=== PATIENT | female | born 1985 | race Caucasian/White ===

== ENCOUNTER 2017-03-13 21:11 | Emergency (ER) | payer MEDICAID ==
[~2017-03-13] VITALS: Ht 147.3 cm; Wt 88.5 kg
--- NOTE | 2017-03-13 22:08 | NUR ---
PT RECEIVED FROM HOME BIB SELF C/O LEFT ARM PAIN 08/06 NONRADIATING FEELING "PRESSURE" LIKE. X2 WEEKS AGO HAD SENSATION IN LOWER LEGS. NO SOB NOTED WITH ADEQUATE CHEST RISE AND FALL. A/OX4 VSS NAD. WILL CONTINUE TO MONITOR FOR ANY CHANGES
--- NOTE | 2017-03-13 22:10 | NUR ---
EKG AT BEDSIDE
--- NOTE | 2017-03-13 23:48 | NUR ---
ER MD DÍAZ AT BEDSIDE FOR EVAL
[2017-03-13] MEDS ORDERED: ACETAMINOPHEN ES 500 MG TABLET ONE (23:55)
--- NOTE | 2017-03-13 23:59 | NUR ---
LAB AT BEDSIDE FOR BLOOD DRAW
[2017-03-14] MEDS ORDERED: ACETAMINOPHEN ES 500 MG TABLET PO ONE
--- NOTE | 2017-03-14 00:07 | NUR ---
MECHANICAL EXPERT AT BEDSIDE
--- NOTE | 2017-03-14 00:08 | NUR ---
PT TO SIGN REFUSAL OF TEST FOR OKAY TO XRAY
[2017-03-14 00:14] LABS: BASOPHILS # (AUTO) 0.1 /CMM (0.0-0.2); EOSINOPHILS # (AUTO) 0.2 /CMM (0.0-0.7); EOSINOPHILS % (AUTO) 1.8 % (0.0-6.0); HEMATOCRIT 37 % (33-45); HEMOGLOBIN 12.5 g/dL (11.5-14.8); LYMPHOCYTES # (AUTO) 2.5 /CMM (0.8-4.8); LYMPHOCYTES % (AUTO) 25.9 % (20.0-44.0); MEAN CORPUSCULAR HEMOGLOBIN 30 PG (26.0-33.0); MEAN CORPUSCULAR HGB CONC 34 g/dl (31.0-36.0); MEAN CORPUSCULAR VOLUME 87 fL (82-100); MONOCYTES # (AUTO) 0.8 /CMM (0.1-1.30); MONOCYTES % (AUTO) 8.8 % (2.0-12.0); NEUTROPHILS # (AUTO) 5.9 /CMM (1.8-8.9); NEUTROPHILS % (AUTO) 62.5 % (43.0-81.0); PLATELET COUNT (AUTO) 311 /CMM (150-450); RDW COEFFICIENT OF VARIATION 13.6 (11.5-15.0); WHITE BLOOD COUNT (AUTO) 9.5 K/uL (4.3-11.0)
[2017-03-14 00:33] LABS: TROPONIN I < 0.017 ng/mL (0.00-0.056)
[2017-03-14 00:34] LABS: CALCIUM, SERUM 8.5 mg/dL (8.5-10.1); CREATININE 0.6 mg/dL (0.6-1.3); GLUCOSE 95 mg/dL (74-106); UREA NITROGEN, BLOOD 15 mg/dL (7-18)
[2017-03-14 00:39] LABS: CARBON DIOXIDE 27 mmol/L (21-32); CHLORIDE 104 mmol/L (98-107); POTASSIUM 3.7 mmol/L (3.5-5.1); SODIUM SERUM 139 mmol/L (136-145)
[2017-03-14 01:02] LABS: ALANINE AMINOTRANSFERASE 23 U/L (12-78); ALBUMIN 3.5 g/dL (3.4-5.0); ALKALINE PHOSPHATASE 72 U/L (46-116); ASPARTATE AMINOTRANSFERASE 12 U/L (15-37); B-TYPE NATRIURETIC PEPTIDE 54 PG/ML (0-125); BILIRUBIN,TOTAL 0.2 mg/dL (0.2-1.0); TOTAL PROTEIN, SERUM 7.8 g/dL (6.4-8.2)
[2017-03-14 01:26] VITALS: BP 134/76
== END 2017-03-14 01:27 | disposition home or self-care (01) ==
LOC: ER 21:16
DX: M79.602 Pain in left arm (principal)
CPT/HCPCS: 36415; 71045; 73060; 80048; 80076; 83880; 84484; 85025; 93005 ×2; 99285; A4606; Z7610

== ENCOUNTER 2017-04-06 20:14 | Emergency (ER) | payer MEDICAID ==
[~2017-04-06] VITALS: Ht 152.4 cm; Wt 83.9 kg
--- NOTE | 2017-04-06 20:25 | NUR ---
TO BED 5 A 31 YO FEMALE PATIENT BB SELF; LEFT ABD/ FLANK PAIN X 3 DAYS, CRAMPING LIKE. PATIENT IS AAOX4, NAD NOTED. VSS. SKIN WARM AND DRY. GOWNED. COMFORT MEASURES RENDERED.
--- NOTE | 2017-04-06 20:49 | NUR ---
DR GILLESPIE AT BEDSIDE TO EVALUATE PATIENT.
[2017-04-06] MEDS ORDERED: ONDANSETRON HCL/PF 4 MG/2 ML VIAL ONE (20:55)
[2017-04-06] MEDS ORDERED: MORPHINE SULFATE INJ 4 MG/ML DISP.SYRIN ONE (20:56)
[2017-04-06] MEDS ORDERED: ONDANSETRON HCL/PF 4 MG/2 ML VIAL IVP ONE (21:00)
[2017-04-06] MEDS ORDERED: MORPHINE SULFATE INJ 2 MG/ML DISP.SYRIN IV ONE (21:00)
--- NOTE | 2017-04-06 21:00 | NUR ---
STARTED A SALINE LOCK ON THE LAC G18, BLOOD DRAWN AND SENT TO LAB.
[2017-04-06 21:05] LABS: BASOPHILS # (AUTO) 0.1 /CMM (0.0-0.2); BASOPHILS % (AUTO) 0.7 % (0.0-2.0); EOSINOPHILS # (AUTO) 0.1 /CMM (0.0-0.7); EOSINOPHILS % (AUTO) 0.9 % (0.0-6.0); HEMATOCRIT 40 % (33-45); HEMOGLOBIN 13.6 g/dL (11.5-14.8); LYMPHOCYTES # (AUTO) 2.7 /CMM (0.8-4.8); LYMPHOCYTES % (AUTO) 22.5 % (20.0-44.0); MEAN CORPUSCULAR HEMOGLOBIN 29 PG (26.0-33.0); MEAN CORPUSCULAR HGB CONC 34 g/dl (31.0-36.0); MEAN CORPUSCULAR VOLUME 86 fL (82-100); MONOCYTES # (AUTO) 0.8 /CMM (0.1-1.30); MONOCYTES % (AUTO) 6.3 % (2.0-12.0); NEUTROPHILS # (AUTO) 8.3 /CMM (1.8-8.9); NEUTROPHILS % (AUTO) 69.6 % (43.0-81.0); PLATELET COUNT (AUTO) 338 /CMM (150-450); RDW COEFFICIENT OF VARIATION 12.7 (11.5-15.0); RED BLOOD CELL COUNT(AUTO) 4.65 MIL/uL (4.0-5.2)
--- NOTE | 2017-04-06 21:05 | NUR ---
MEDICATED PATIETN ORDERED BY DR GILLESPIE.
[2017-04-06 21:19] LABS: CALCIUM, SERUM 9.4 mg/dL (8.5-10.1); CREATININE 0.6 mg/dL (0.6-1.3); POTASSIUM 3.9 mmol/L (3.5-5.1)
[2017-04-06 21:27] LABS: APPEARANCE,URINE Clear (CLEAR); BILIRUBIN,URINE Negative (NEGATIVE); BLOOD, URINE Negative Ery/uL (NEGATIVE); COLOR,URINE Yellow (YELLOW); KETONES,URINE Negative (NEGATIVE); LEUKOCYTE ESTERASE ,URINE Negative (NEGATIVE); NITRITE, URINE Negative (NEGATIVE); PROTEIN,URINE Negative (NEGATIVE); UGLUCOSE Negative (NEGATIVE); UROBILINOGEN,URINE 0.2 EU/dL (0.2)
[2017-04-06 21:30] LABS: ALBUMIN 3.7 g/dL (3.4-5.0); BILIRUBIN,DIRECT 0.1 mg/dL (0.0-0.2); BILIRUBIN,TOTAL 0.3 mg/dL (0.2-1.0); TOTAL PROTEIN, SERUM 8.4 g/dL (6.4-8.2)
--- NOTE | 2017-04-06 21:38 | NUR ---
PATIENT AT CT THIS TIME.
--- NOTE | 2017-04-06 22:31 | NUR ---
IV removed. Catheter intact and site benign. Pressure and 4x4 applied to site. No bleeding noted. Patient discharged to home in stable condition. Written and verbal after care instructions given. Patient verbalizes understanding of instruction. Patient is ambulatory with steady gait, accompanied by mother. Instructed patient not to drive. vss. nad noted. No further complaints.
[2017-04-06 22:32] VITALS: BP 133/82
== END 2017-04-06 22:32 | disposition home or self-care (01) ==
LOC: ER 20:20
DX: R10.32 Left lower quadrant pain (principal); K92.1 Melena
CPT/HCPCS: 36415; 74176; 80048; 80076; 81001; 83690; 84703; 85025; 96374; 96375; 99285; A4606; J2270 ×2; J2405 ×2; Z7610; 81000-TC

== ENCOUNTER 2021-06-15 20:24 | Emergency (ER) | payer SELFPAY ==
[~2021-06-15] VITALS: Ht 152.4 cm; Wt 97.5 kg
--- NOTE | 2021-06-15 22:28 | NUR ---
TO ER BED 3. BIBS C/O PAINFUL URINATION AND ABDOMINAL PAIN RADIATING TO L LOWER BACK. 10/06 ON P/S , DESCRIBED "SHARP" PAIN . PT TOOK OTC MEDS WITH LITTLE TO NO RELIEF. CHANGED INTO GOWN. CONNECTED TO MONITOR. AWAITING MD [place]
[2021-06-15] MEDS ORDERED: ONDANSETRON 4 MG TAB.RAPDIS ONE (22:39)
[2021-06-15] MEDS ORDERED: HYDROCODONE/APAP 10/325MG TABLET ONE (22:39)
[2021-06-15] MEDS ORDERED: HYDROCODONE/APAP 10/325MG TABLET PO ONE (23:00)
[2021-06-15] MEDS ORDERED: ONDANSETRON 4 MG TAB.RAPDIS SL ONE (23:00)
[2021-06-15 23:16] LABS: COLOR,URINE ORANGE (YELLOW)
[2021-06-15 23:17] LABS: PROTEIN,URINE NEGATIVE (NEGATIVE); UGLUCOSE NEGATIVE (NEGATIVE)
[2021-06-15 23:18] LABS: BILIRUBIN,URINE 1+ (NEGATIVE); LEUKOCYTE ESTERASE ,URINE NEGATIVE (NEGATIVE); NITRITE, URINE NEGATIVE (NEGATIVE)
[2021-06-15 23:20] LABS: BACTERIA,URINE Many /HPF (None Seen); MUCUS,URINE Few /LPF (None Seen); RBC,URINE 0-2 /HPF (0-2); SQUAMOUS EPITHELIAL CELL,UR Moderate /HPF (None Seen)
[2021-06-16] MEDS ORDERED: NITROFURANTOIN/MONOHYDRATE MACROCRYSTALS 100 MG CAPSULE PO ONE (00:30)
[2021-06-16] MEDS ORDERED: NITROFURANTOIN/MONOHYDRATE MACROCRYSTALS 100 MG CAPSULE ONE (00:44)
[2021-06-16 00:58] LABS: BASOPHILS # (AUTO) 0.1 K/uL (0.0-0.2); BASOPHILS % (AUTO) 0.9 % (0.0-2.0); EOSINOPHILS % (AUTO) 2.9 % (0.0-6.0); HEMATOCRIT 39 % (33-45); HEMOGLOBIN 12.8 g/dL (11.5-14.8); LYMPHOCYTES # (AUTO) 2.4 K/uL (0.8-4.8); LYMPHOCYTES % (AUTO) 25.3 % (20.0-44.0); MEAN CORPUSCULAR HGB CONC 33 g/dl (31.0-36.0); MEAN CORPUSCULAR VOLUME 88 fL (82-100); MONOCYTES # (AUTO) 0.9 K/uL (0.1-1.30); MONOCYTES % (AUTO) 9.6 % (2.0-12.0); NEUTROPHILS # (AUTO) 5.9 K/uL (1.8-8.9); NEUTROPHILS % (AUTO) 61.3 % (43.0-81.0); PLATELET COUNT (AUTO) 326 K/uL (150-450); RED BLOOD CELL COUNT(AUTO) 4.39 MIL/uL (4.0-5.2); WHITE BLOOD COUNT (AUTO) 9.6 K/uL (4.3-11.0)
[2021-06-16 01:06] LABS: CALCIUM, SERUM 9.1 mg/dL (8.5-10.1); CREATININE 0.7 mg/dL (0.6-1.3); POTASSIUM 4.1 mmol/L (3.5-5.1)
[2021-06-16 01:23] LABS: ALBUMIN 3.3 g/dL (3.4-5.0); BILIRUBIN,TOTAL 0.2 mg/dL (0.2-1.0); TOTAL PROTEIN, SERUM 7.8 g/dL (6.4-8.2)
[2021-06-16] MEDS ORDERED: CEPH500T PO (05:53)
[2021-06-16] MEDS ORDERED: NITR-84 PO (05:53)
[2021-06-16] MEDS ORDERED: HYDR-4209 PO (05:53)
[2021-06-16] MEDS ORDERED: ONDA4TAB5 PO (05:53)
[2021-06-16] MEDS ORDERED: CEPHALEXIN MONOHYDRATE 500 MG CAPSULE PO ONE ×2 (06:00→06:02)
--- NOTE | 2021-06-16 06:10 | NUR ---
Patient discharged to home in stable condition. Written and verbal after care instructions given. Patient verbalizes understanding of instruction. Pt ambulatory with a steady gait
[2021-06-16 06:17] VITALS: BP 135/80
== END 2021-06-16 06:10 | disposition home or self-care (01) ==
LOC: ER 20:27
DX: N30.90 Cystitis, unspecified without hematuria (principal)
CPT/HCPCS: 36415; 74176; 80053; 81001; 83690; 84703; 85025; 87077; 87086; 87186; 99284; Q0162

== ENCOUNTER 2022-05-29 05:09 | Emergency (ER) | payer SELFPAY ==
[~2022-05-29] VITALS: Ht 152.4 cm; Wt 99.8 kg
[~2022-05-29 05:09] MED LIST: CEPH500T PO; HYDR-4209 PO; NITR-84 PO; ONDA4TAB5 PO
--- NOTE | 2022-05-29 05:18 | NUR ---
[id number] FROM HOME C/O FEELING DIZZY AFTER WALKING TO RESTROOM THIS MORNING. PT IS A/O X 4, RR EVEN AND UNLABORED, NO SOB NOTED, VSS, NAD. PT TO ER BED 09 AND CONNECTED TO CARDIAC AND POX MONITORS.
[2022-05-29 05:56] LABS: BASOPHILS # (AUTO) 0.1 K/uL (0.0-0.2); EOSINOPHILS % (AUTO) 2.6 % (0.0-6.0); HEMATOCRIT 39 % (33-45); HEMOGLOBIN 12.6 g/dL (11.5-14.8); LYMPHOCYTES # (AUTO) 1.8 K/uL (0.8-4.8); LYMPHOCYTES % (AUTO) 22.5 % (20.0-44.0); MEAN CORPUSCULAR HGB CONC 32 g/dl (31.0-36.0); MEAN CORPUSCULAR VOLUME 88 fL (82-100); MONOCYTES # (AUTO) 0.8 K/uL (0.1-1.30); MONOCYTES % (AUTO) 9.5 % (2.0-12.0); NEUTROPHILS # (AUTO) 5.2 K/uL (1.8-8.9); NEUTROPHILS % (AUTO) 64.4 % (43.0-81.0); PLATELET COUNT (AUTO) 381 K/uL (150-450); RED BLOOD CELL COUNT(AUTO) 4.42 MIL/uL (4.0-5.2)
--- NOTE | 2022-05-29 06:10 | NUR ---
URINE COLLECTED SENT TO LAB
[2022-05-29 06:19] LABS: CALCIUM, SERUM 8.4 mg/dL (8.5-10.1); CREATININE 0.7 mg/dL (0.6-1.3); POTASSIUM 3.7 mmol/L (3.5-5.1)
[2022-05-29] MEDS ORDERED: diphenhydrAMINE HCL 50 MG/ML VIAL IV ONE (07:00)
[2022-05-29] MEDS ORDERED: ONDANSETRON HCL/PF 4 MG/2 ML VIAL IVP ONE (07:00)
[2022-05-29] MEDS ORDERED: IV NS 0.9% 500 ML BAG IV ONE (07:00)
[2022-05-29 07:12] LABS: BILIRUBIN,URINE NEGATIVE (NEGATIVE); COLOR,URINE YELLOW (YELLOW); LEUKOCYTE ESTERASE ,URINE 1+ (NEGATIVE); NITRITE, URINE NEGATIVE (NEGATIVE); PROTEIN,URINE NEGATIVE (NEGATIVE); UGLUCOSE NEGATIVE (NEGATIVE); UROBILINOGEN,URINE 0.2 EU/dL (0.2)
[2022-05-29] MEDS ORDERED: ONDANSETRON HCL/PF 4 MG/2 ML VIAL ONE (07:13)
[2022-05-29] MEDS ORDERED: diphenhydrAMINE HCL 50 MG/ML VIAL ONE (07:13)
[2022-05-29 07:15] LABS: BACTERIA,URINE Rare /HPF (None Seen); RBC,URINE 0-2 /HPF (0-2); SQUAMOUS EPITHELIAL CELL,UR Many /HPF (None Seen); YEAST,URINE Few /HPF (None Seen)
[2022-05-29] MEDS ORDERED: NITR100C6 PO (08:25)
[2022-05-29] MEDS ORDERED: ONDA4TAB5 PO (08:25)
[2022-05-29] MEDS ORDERED: MECL-159 PO (08:25)
[2022-05-29 08:48] VITALS: BP 130/84
== END 2022-05-29 08:49 | disposition home or self-care (01) ==
LOC: ER 05:11
DX: N39.0 Urinary tract infection, site not specified (principal); R42 Dizziness and giddiness; Z79.899 Other long term (current) drug therapy
CPT/HCPCS: 99284; 96374; 96361; 96375; 93005; 85025; 80048; 87086; 84703; 81001; 36415; J1200; J2405; J7040